=== PATIENT | male | born 1990 | race Two or more races ===

== ENCOUNTER 2022-12-10 12:11 | Emergency (ER) | payer SELFPAY ==
[~2022-12-10] VITALS: Ht 175.3 cm; Wt 105.0 kg
[2022-12-10] MEDS ORDERED: SODIUM CHLORIDE 0.9% 1,000 ML IVB ONE (13:00)
[2022-12-10] MEDS ORDERED: NEOMYCIN-BACITRACIN-POLYM UNITDOSE PKG TOP OINT TOP ONE (13:00)
[2022-12-10] MEDS ORDERED: LIDOCAINE 1% (LOCAL ANESTH.) PF 5ml SDV ID ONE (13:00)
[2022-12-10 13:23] LABS: Basophils # (auto) 0.1 10 ^3/uL (0-0.2); Basophils % (auto) 0.8 % (0.0-2.0); Eosinophils # (auto) 0.1 10 ^3/uL (0-0.8); Lymphocytes # (auto) 2.1 10 ^3/uL (0.4-5.4); Lymphocytes % (auto) 31.1 % (10.0-50.0); Mean Corpuscular Hemoglobin 30.8 pg (28.0-32.0); Mean Corpuscular Volume 90.5 fL (80.0-100.0); Monocytes # (auto) 0.5 10 ^3/uL (0-1.3); Monocytes % (auto) 7.3 % (0.0-12.0); Neutrophils % (auto) 59.8 % (37.0-80.0); Nucleated Red Blood Cells % 0.2 %; Red Blood Cells 4.86 10^6/uL (4.5-5.90); Red Cell Distribution Width 13.7 % (11.8-14.3); White Blood Cell 6.6 10^3/uL (4.4-10.8)
[2022-12-10 13:38] LABS: Albumin 3.5 g/dL (3.4-5.0); BUN/Creatinine Ratio 13.4 (10.0-20.0); Calcium 8.4 mg/dL (8.5-10.1); Potassium 4.3 mmol/L (3.5-5.1)
[2022-12-10 13:41] LABS: Bilirubin, Total 0.6 mg/dL (0.2-1.0); Total Protein 6.8 g/dL (6.4-8.2)
[2022-12-10 14:29] LABS: Blood Alcohol < 3.0 mg/dL (<10); Magnesium 1.8 mg/dL (1.6-2.6)
[2022-12-10 14:47] VITALS: BP 114/72; PULSE 20; RESP 20; TEMP 98.2; O2SAT 98
== END 2022-12-10 15:49 | disposition home or self-care (01) ==
LOC: EDBD 12:11 → ER 12:11
DX: S01.81XA Laceration without foreign body of other part of head, initial encounter (principal); Z90.49 Acquired absence of other specified parts of digestive tract; Z79.899 Other long term (current) drug therapy; W22.8XXA Striking against or struck by other objects, initial encounter; Y93.01 Activity, walking, marching and hiking; Y92.098 Other place in other non-institutional residence as the place of occurrence of the external cause; Y99.8 Other external cause status
CPT/HCPCS: 12013; 36415; 70450; 72125; 80053; 80320; 83735; 85025; 96360; 99284; J7030